=== PATIENT | female | born 1990 | race Two or more races ===

== ENCOUNTER 2022-04-13 10:38 | Emergency (ER) | payer OTHER ==
[~2022-04-13] VITALS: Ht 154.9 cm; Wt 56.7 kg
== END 2022-04-13 13:46 | disposition home or self-care (01) ==
LOC: ER 10:38
DX: R21 Rash and other nonspecific skin eruption (principal)

== ENCOUNTER → 2024-01-10 | Emergency (ER) | payer OTHER ==
[~2024-01-10] VITALS: Ht 154.9 cm; Wt 59.0 kg
[2024-01-10 09:04] VITALS: BP 107/75; O2SAT 100
== END | disposition left against medical advice (07) ==
LOC: ER 08:37
DX: Z53.21 Procedure and treatment not carried out due to patient leaving prior to being seen by health care provider (principal)